=== PATIENT | female | born 1990 | race Caucasian/White ===

== ENCOUNTER 2017-09-05 09:03 | Emergency (ER) | payer OTHER ==
[~2017-09-05] VITALS: Ht 157.5 cm; Wt 128.8 kg
[2017-09-05 09:11] VITALS: Ht 157.5 cm; Wt 128.8 kg
[2017-09-05 11:21] VITALS: BP 131/85
== END 2017-09-05 11:21 | disposition home or self-care (01) ==
LOC: ED 09:03
DX: J03.90 Acute tonsillitis, unspecified (principal); J98.01 Acute bronchospasm; E66.01 Morbid (severe) obesity due to excess calories
CPT/HCPCS: J0696; J1100

== ENCOUNTER 2018-05-04 03:36 | Emergency (ER) | payer SELFPAY ==
[~2018-05-04] VITALS: Ht 157.5 cm; Wt 132.4 kg
[2018-05-04 04:07] LABS: BASOPHIL % 0.5 % (0-2); PLATELET COUNT 348 x10^3mcL (130-400); RED CELL DISTRIBUTION WIDTH 12.6 % (11.5-14.5)
[2018-05-04 04:31] LABS: ALBUMIN 3.6 g/dL (3.4-5.0); ALKALINE PHOSPHATASE 88 U/L (46-116); ALT/SGPT 64 U/L (14-59); AST/SGOT 37 U/L (15-37); BILIRUBIN TOTAL 0.2 mg/dL (0.20-1.00); CALCIUM 9.5 mg/dL (8.5-10.1); CHLORIDE SERUM 102 mmol/L (98-107); CREATININE SERUM 0.9 mg/dL (0.6-1.0); GFR1 > 60 mL/min; GLUCOSE SERUM 128 mg/dL (74-106); LIPASE 94 IU/L (73-393); POTASSIUM SERUM 3.6 mmol/L (3.5-5.1); SODIUM SERUM 139 mmol/L (136-145); TOTAL PROTEIN, SERUM 8.1 g/dL (6.4-8.2)
[2018-05-04 06:22] VITALS: BP 117/84
== END 2018-05-04 06:22 | disposition home or self-care (01) ==
LOC: ED 03:36
PROVIDERS: Emergency Medicine
DX: N20.2 Calculus of kidney with calculus of ureter (principal); N39.0 Urinary tract infection, site not specified
CPT/HCPCS: J0696; J1885; J2270; J2405; J7030

== ENCOUNTER 2019-07-05 13:49 | Emergency (ER) | payer OTHER ==
[~2019-07-05] VITALS: Ht 160 cm; Wt 132.0 kg
[2019-07-05 13:52] VITALS: Ht 160 cm; Wt 132.0 kg
[2019-07-05 16:31] VITALS: BP 140/84
== END 2019-07-05 15:00 | disposition home or self-care (01) ==
LOC: ED 13:49
DX: J02.8 Acute pharyngitis due to other specified organisms (principal); Z87.19 Personal history of other diseases of the digestive system

== ENCOUNTER 2019-08-25 20:26 | Emergency (ER) | payer OTHER ==
[~2019-08-25] VITALS: Ht 157.5 cm; Wt 129.3 kg
[2019-08-25 20:34] VITALS: Ht 157.5 cm; Wt 129.3 kg
[2019-08-25 21:15] LABS: BASOPHIL % 0.2 % (0-2); PLATELET COUNT 320 x10^3mcL (130-400); RED CELL DISTRIBUTION WIDTH 14.4 % (11.5-14.5)
[2019-08-25 21:21] LABS: CALCIUM 9.7 mg/dL (8.5-10.1); CARBON DIOXIDE 26.1 mmol/L (21-32); CHLORIDE SERUM 101 mmol/L (98-107); CREATININE SERUM 0.8 mg/dL (0.6-1.0); GFR1 > 60 mL/min; GLUCOSE SERUM 125 mg/dL (74-106); POTASSIUM SERUM 3.9 mmol/L (3.5-5.1); SODIUM SERUM 136 mmol/L (136-145)
[2019-08-25 21:34] LABS: ALBUMIN 3.6 g/dL (3.4-5.0); ALKALINE PHOSPHATASE 77 U/L (46-116); ALT/SGPT 36 U/L (14-59); AST/SGOT 22 U/L (15-37); BILIRUBIN TOTAL 0.2 mg/dL (0.20-1.00); LIPASE 119 IU/L (73-393); TOTAL PROTEIN, SERUM 7.6 g/dL (6.4-8.2)
[2019-08-25 22:07] LABS: microscopic required? YES; urine erythrocyte 3+ (NEGATIVE)
[2019-08-25 23:41] VITALS: BP 125/76
== END 2019-08-25 23:41 | disposition home or self-care (01) ==
LOC: ED 20:26
PROVIDERS: Emergency Medicine
DX: N23 Unspecified renal colic (principal); Z90.49 Acquired absence of other specified parts of digestive tract
CPT/HCPCS: J1885; J2405; J3010

== ENCOUNTER 2020-01-28 11:18 | Emergency (ER) | payer OTHER ==
[~2020-01-28] VITALS: Ht 157.5 cm; Wt 117.9 kg
[2020-01-28 11:19] VITALS: BP 140/93; Ht 157.5 cm; Wt 117.9 kg
== END 2020-01-28 12:50 | disposition home or self-care (01) ==
LOC: ED 11:18
DX: R05 Cough (principal); R06.02 Shortness of breath